=== PATIENT | female | born 1995 | race Caucasian/White ===

== ENCOUNTER 2016-04-23 18:55 | Emergency (ER) | payer OTHER ==
[~2016-04-23] VITALS: Ht 170.2 cm; Wt 78.6 kg
[2016-04-23 19:00] VITALS: TEMP 36.7; O2SAT 98; Ht 170.2 cm; Wt 78.6 kg
[2016-04-23] MEDS ORDERED: BCPILLS PO (19:14)
[2016-04-23] MEDS ORDERED: SODIUM CHLORIDE 0.9% 1000ML 1,000 ML IV STA (19:21)
--- NOTE | 2016-04-23 19:30 | EMERGENCY ROOM VISIT NOTE ---
History Report prepared by Gavin: Gaston Thacker Under the Supervision of: Dr. Denver Mcdonough M.D. First contact with patient: 19:13 Chief Complaint: SYNCOPE Stated Complaint: SYNCOPE History of Present Illness The patient is a 20 year old female who presents to the Emergency [facility] due to a syncopal episode that occurred shortly prior to arrival. 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 She stood up abruptly, and passed out. The patient notes that she was seeing spots before she went unconscious. The fall was witnessed by many of her friends who state that she fell backward onto a carpeted floor and hit the back of her head. She was passed out for 5 seconds, and her friends note that she stiffened up while she was unconscious. She currently feels a diffuse headache, but has no other complaints. The patient has passed out in the past, and notes that it is usually related to being hot. The patient states that she has not eaten or drank much today. She denies any recent sicknesses or urinary symptoms. She also denies any chest pain or shortness of breath. The patient denies drinking any alcohol this evening. 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 A total of 10 systems reviewed and were otherwise negative. Past Medical & Surgical Medical Problems: (1) Hx of syncope Hx of syncope Family History Seizures Social History Marital Status: single Housing Status: lives with roommate Occupation Status: [employer] student Current/Historical Medications Scheduled Control Pills ( Control Pills), 1 TAB PO DAILY Allergies Coded Allergies: No Known Allergies (Unverified , 04/23/16) Physical Exam Vital Signs Date Time Temp Pulse Resp B/P Pulse Ox O2 Delivery O2 Flow Rate FiO2 04/23/16 20:40 73 17 150/75 98 Room Air 04/23/16 19:13 71 04/23/16 19:00 98 Room Air 04/23/16 19:00 36.7 62 21 125/67 98 Room Air Physical Exam GENERAL: Patient is in no acute distress. HEENT: No acute trauma, normocephalic atraumatic, mucous membranes dry, no nasal congestion, no scleral icterus. NECK: No posterior c-spine tenderness. No stridor, no adenopathy, no meningismus , trachea is midline. LUNGS: Clear to auscultation bilaterally, no wheeze, no rhonchi, breath sounds equal. HEART: Bradycardiac, no murmurs, rhythm is regular. ABDOMEN: Soft, nontender, bowel sounds positive, no hernias, no peritonitis. EXTREMITIES: No cyanosis or edema, full range of motion of all the joints without pain or difficulty, no signs for acute trauma. NEUROLOGIC: Oriented x 3, no acute motor or sensory deficits, no focal weakness. SKIN: No rash, no jaundice, no diaphoresis. Medical Decision & Procedures ER Provider Diagnostic Interpretation: X ray results and stated below per my interpretation and radiologist interpretation. Other radiology results and stated below per my review and radiologist interpretation: CHEST ONE VIEW PORTABLE CLINICAL HISTORY: Altered mental status. Weakness. Syncope. COMPARISON STUDY: No previous studies for comparison. FINDINGS: Lung volumes are normal. Lungs are clear. There is no pneumothorax or pleural effusion. Cardiac size is normal. Mediastinal contours are normal. There is no evidence of pulmonary edema. IMPRESSION: No acute cardiopulmonary findings. Electronically signed by: Bob Moran M.D. 04/23/2016 8:16 PM Dictated Date/Time: 04/23/2016 8:[address] OF THE HEAD WITHOUT CONTRAST CLINICAL HISTORY: Altered mental status. Weakness. Syncope. COMPARISON STUDY: No previous studies for comparison. CT DOSE: 537.48 mGy.cm TECHNIQUE: Helical axial images of the head were obtained without IV contrast. Automated exposure control was utilized for the study. FINDINGS: No acute intracranial hemorrhage, midline shift or mass effect is present. There is moderate enlargement of the lateral, third and fourth ventricles. There may be white matter volume loss. The basilar cisterns are patent. There are no extra axial collections. There are no findings to suggest acute dural sinus thrombosis or acute territorial infarct. There is no calvarial fracture. Visualized portions of the sinuses and mastoid air cells are clear. IMPRESSION: 1. Moderate enlargement of the lateral, third and fourth ventricles with suspected white matter volume loss. These findings are age indeterminate but probably chronic. 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 Correlation with prior imaging studies, if available, is recommended. If persistent symptoms, neurosurgical consultation might be considered. Findings discussed with Dr. Mcdonough at time of dictation. 2. No acute intracranial hemorrhage. 3. No calvarial fracture. Electronically signed by: Bob Moran M.D. 04/23/2016 8:51 PM Dictated Date/Time: 04/23/2016 8:43 PM Laboratory Results 04/23/16 19:52 Red Blood Count 5.05, Mean Corpuscular Volume 73.9, Mean Corpuscular Hemoglobin 23.4, Mean Corpuscular Hemoglobin Concent 31.6, Mean Platelet Volume 9.4, Neutrophils (%) (Auto) 64.5, Lymphocytes (%) (Auto) 25.2, Monocytes (%) (Auto) 8.0, Eosinophils (%) (Auto) 1.8, Basophils (%) (Auto) 0.2, Neutrophils # (Auto) 5.98, Lymphocytes # (Auto) 2.34, Monocytes # (Auto) 0.74, Eosinophils # (Auto) 0.17, Basophils # (Auto) 0.02 04/23/16 19:52 Test 04/23/16 19:52 04/23/16 20:57 White Blood Count 9.28 K/uL (4.8-10.8) Red Blood Count 5.05 M/uL (4.2-5.4) Hemoglobin 11.8 g/dL (12.0-16.0) Hematocrit 37.3 % (37-47) Mean Corpuscular Volume 73.9 fL (80-100) Mean Corpuscular Hemoglobin 23.4 pg (25-34) Mean Corpuscular Hemoglobin Concent 31.6 g/dl (32-36) Platelet Count 295 K/uL (130-400) Mean Platelet Volume 9.4 fL (7.4-10.4) Neutrophils (%) (Auto) 64.5 % Lymphocytes (%) (Auto) 25.2 % Monocytes (%) (Auto) 8.0 % Eosinophils (%) (Auto) 1.8 % Basophils (%) (Auto) 0.2 % Neutrophils # (Auto) 5.98 K/uL (1.4-6.5) Lymphocytes # (Auto) 2.34 K/uL (1.2-3.4) Monocytes # (Auto) 0.74 K/uL (0.11-0.59) Eosinophils # (Auto) 0.17 K/uL (0-0.5) Basophils # (Auto) 0.02 K/uL (0-0.2) RDW Standard Deviation 45.6 fL (36.4-46.3) RDW Coefficient of Variation 16.7 % (11.5-14.5) Immature Granulocyte % (Auto) 0.3 % Immature Granulocyte # (Auto) 0.03 K/uL (0.00-0.02) Anion Gap 13.0 mmol/L (3-11) Est Creatinine Clear Calc Drug Dose 126.9 ml/min Estimated GFR () 129.7 Estimated GFR (Non- 111.9 BUN/Creatinine Ratio 12.7 (10-20) Calcium Level 8.9 mg/dl (8.5-10.1) Total Bilirubin 0.2 mg/dl (0.2-1) Aspartate Amino Transf (AST/SGOT) 23 U/L (15-37) Alanine Aminotransferase (ALT/SGPT) 27 U/L (12-78) Alkaline Phosphatase 99 U/L (45-117) Total Protein 8.7 gm/dl (6.4-8.2) Albumin 4.0 gm/dl (3.4-5.0) Globulin 4.7 gm/dl (2.5-4.0) Albumin/Globulin Ratio 0.9 (0.9-2) Thyroid Stimulating Hormone (TSH) 2.190 uIu/ml (0.300-4.500) Human Chorionic Gonadotropin, Qual NEG (NEG) Urine Color YELLOW Urine Appearance CLEAR (CLEAR) Urine pH 7.0 (4.5-7.5) Urine Specific [place] 1.010 (1.000-1.030) Urine Protein NEG (NEG) Urine Glucose (UA) NEG (NEG) Urine Ketones NEG (NEG) Urine Occult Blood 3+ (NEG) Urine Nitrite NEG (NEG) Urine Bilirubin NEG (NEG) Urine Urobilinogen NEG (NEG) Urine Leukocyte Esterase NEG (NEG) Urine RBC 5-10 /hpf (0-4) Urine WBC 1-5 /hpf (0-5) Urine Epithelial Cells 20-30 /lpf (0-5) Urine Bacteria NEG (NEG) Laboratory results reviewed by me. Medications Administered Medications (Trade) Dose Ordered Sig/Neli Route Start Time Stop Time Status Last Admin Dose Admin Sodium Chloride (Nss 1000ml) 1,000 ml @ 999 mls/hr Q1H1M STAT IV 04/23/16 19:21 04/23/16 20:21 DC 04/23/16 19:56 999 MLS/HR ECG Indication: syncope Rate (beats per minute): 54 Rhythm: sinus bradycardia Findings: no acute ischemic change, no ectopy ED Course 1914: The patient was evaluated in room C8. A complete history and physical exam was performed. 1920: Ordered Sodium Chloride 1000 mL @ 999 mL/hr IV. 2051: I reevaluated the patient at this time, she is resting in bed and feeling well. 2133: I spoke with the patient at length at this time. I discussed the results of the CT and stressed that these are not acute findings. I also spoke with the patient's mother on the phone and discussed the results with her. The patient with follow up with her PCP. The patient will be discharged home. Medical Decision Differential Diagnosis include: Dehydration, dysrhythmia, vasovagal syncope, anemia, electrolyte imbalance, urinary tract infection, , intracranial bleeding, seizure. There is no leukocytosis or concerning anemia. No significant electrolyte abnormality, kidney failure or hepatitis. testing is negative. Urinalysis does show some blood, the patient is on her menstrual cycle and I do think this explains the hematuria. There is no sign of urinary infection. Chest x-ray does not show cardiomegaly, CHF or pneumonia. EKG shows a sinus bradycardia, no acute ischemia. The patient appears to be in a euthyroid state. Brain CT shows some enlargement of the ventricles likely chronic. No acute bleed or acute skull fracture seen. On exam, the patient did not have evidence for injury to her neck, extremities, back or chest. She was feeling back to baseline. There were no focal neurologic deficits. She was not toxic or febrile. The patient received IV saline, she has done well. I discussed the findings with the patient and I discussed the findings with the patient's mother who is in health care. The patient will be followed up as an outpatient, likely by neurology for the enlarged ventricles. I do not think this is an acute finding and I do not think it has anything to do with her presentation today. The patient is being discharged--rest, hydration, better eating habits were encouraged. She can return if worsening. She will follow-up as an outpatient. A copy of her labs and a copy of her brain CT were given to her upon discharge. Impression Primary Impression: Syncope Scribe Attestation The scribe's documentation has been prepared under my direction and personally reviewed by me in its entirety. I confirm that the note above accurately reflects all work, treatment, procedures, and medical decision making performed by me. Departure Information Dispostion Home / Self-Care Referrals No Doctor, Assigned (PCP) Forms HOME CARE DOCUMENTATION FORM, IMPORTANT VISIT INFORMATION Patient Instructions My [facility] Additional Instructions stay well hydrated eat more regular meals lab testing today was all ok Brain CT today showed enlargement to your ventricles--this is a chronic finding and not acute--no bleeding in the brain was seen today return if worsening follow with S for recheck and then possibly with neurology for the enlarged ventricles Problem Qualifiers Primary Impression: Syncope Syncope type: unspecified Qualified Codes: R55 - Syncope and collapse
[2016-04-23 20:10] LABS: BASO % 0.2 %; BASO ABS # 0.02 K/uL (0-0.2); COMPLETE YES; EOS % 1.8 %; HEMATOCRIT 37.3 % (37-47); IG% 0.3 %; LYMPH % 25.2 %; LYMPH ABS # 2.34 K/uL (1.2-3.4); MEAN CELL VOLUME 73.9 fL (80-100); MEAN CORPUSCULAR HEMOGLOBIN 23.4 pg (25-34); MEAN CORPUSCULAR HGB CONC 31.6 g/dl (32-36); MEAN PLATELET VOLUME 9.4 fL (7.4-10.4); NEUT % 64.5 %; PLATELET COUNT 295 K/uL (130-400); RED BLOOD COUNT 5.05 M/uL (4.2-5.4); WHITE BLOOD COUNT 9.28 K/uL (4.8-10.8)
--- NOTE | 2016-04-23 20:17 | DIAGNOSTIC IMAGING REPORT ---
CHEST ONE VIEW PORTABLE CLINICAL HISTORY: Altered mental status. Weakness. Syncope. COMPARISON STUDY: No previous studies for comparison. FINDINGS: Lung volumes are normal. Lungs are clear. There is no pneumothorax or pleural effusion. Cardiac size is normal. Mediastinal contours are normal. There is no evidence of pulmonary edema. IMPRESSION: No acute cardiopulmonary findings. Electronically signed by: Bob Moran M.D. 04/23/2016 8:16 PM Dictated Date/Time: 04/23/2016 8:16 PM
[2016-04-23 20:33] LABS: BUN/CREATININE RATIO 12.7 (10-20); CALCIUM 8.9 mg/dl (8.5-10.1); CREATININE 0.77 mg/dl (0.60-1.20); POTASSIUM 3.8 mmol/L (3.5-5.1)
[2016-04-23 20:35] LABS: PREG INTERNAL NEGATIVE QC NEG CLEAR BACKGROUND; PREG INTERNAL POSITIVE QC POS CONTROL LINE
[2016-04-23 20:44] LABS: ALB/GLOB RATIO 0.9 (0.9-2); THYROID STIMULATING HORMONE 2.19 uIu/ml (0.300-4.500)
--- NOTE | 2016-04-23 20:53 | DIAGNOSTIC IMAGING REPORT ---
CT OF THE HEAD WITHOUT CONTRAST CLINICAL HISTORY: Altered mental status. Weakness. Syncope. COMPARISON STUDY: No previous studies for comparison. CT DOSE: 537.48 mGy.cm TECHNIQUE: Helical axial images of the head were obtained without IV contrast. Automated exposure control was utilized for the study. FINDINGS: No acute intracranial hemorrhage, midline shift or mass effect is present. There is moderate enlargement of the lateral, third and fourth ventricles. There may be white matter volume loss. The basilar cisterns are patent. There are no extra axial collections. There are no findings to suggest acute dural sinus thrombosis or acute territorial infarct. There is no calvarial fracture. Visualized portions of the sinuses and mastoid air cells are clear. IMPRESSION: 1. Moderate enlargement of the lateral, third and fourth ventricles with suspected white matter volume loss. These findings are age indeterminate but probably chronic. 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 Correlation with prior imaging studies, if available, is recommended. If persistent symptoms, neurosurgical consultation might be considered. Findings discussed with Dr. Mcdonough at time of dictation. 2. No acute intracranial hemorrhage. 3. No calvarial fracture. Electronically signed by: Bob Moran M.D. 04/23/2016 8:51 PM Dictated Date/Time: 04/23/2016 8:43 PM
[2016-04-23 21:12] LABS: MANUAL MICROSCOPIC REQUIRED? YES; URINE APPEARANCE CLEAR (CLEAR); URINE BILIRUBIN NEG (NEG); URINE COLOR YELLOW; URINE NITRITE NEG (NEG); UROBILINOGEN NEG (NEG)
[2016-04-23 21:25] LABS: REVIEW REQ? NO
[2016-04-23 21:31] LABS: URINE BACTERIA NEG (NEG); ZZUR CULT IF INDIC CLEAN CATCH NO
[2016-04-23 21:56] VITALS: BP 140/67; PULSE 86; O2SAT 96
== END 2016-04-23 21:58 | disposition home or self-care (01) ==
LOC: C.EDC 18:57
DX: R55 Syncope and collapse (principal)